=== PATIENT | male | born 1945 | race Caucasian/White ===

== ENCOUNTER 2016-07-10 08:18 | Emergency (ER) | payer MEDICARE, SELFPAY ==
[~2016-07-10 08:18] MED LIST: ALBUTEROL IN200 PUFF INH; ALDACTONE25 MG PO; ATROVENT2.5 ML NEB; BACITRACIN OIN EXT; BACTRIM DS TAB1 EACH PO; COLACE100 MG PO; CORDARONE200 MG PO; COUMADIN2.5 MG PO; COUMADIN4 MG PO; COUMADIN5 MG PO; DUONEB 2.5-0.5MG3 ML NEB; FLAGYL500 MG PO; HYDROCODON-ACE1 EAC2 PO; LANOXIN125 MCG PO; LASIX40 MG PO; LEVAQUIN750 MG PO; NICODERM 14MG PA1 EA TD; NICODERM 21MG PA1 EA TD; NICODERM 7MG PAT1 EA TD; PRADAXA150 MG PO; REMERON30 MG PO; SPIRIVA18 MCG INH; SYMBICORT 80-10.2 GM INH; VITAMIN D250000 UNIT PO; ZOCOR20 MG PO
[2016-07-10 08:44] LABS: ARTERIAL BLD GAS O2 SATURATION 97.5 % (94-98); ARTERIAL BLOOD GAS BASE EXCESS 2.3 mmol/L (-2.0-3.0); ARTERIAL BLOOD GAS HCO3 25.8 mmol/L (22-26); ARTERIAL BLOOD GAS PCO2 37.9 mmHg (35-48); ARTERIAL BLOOD GAS pH 7.45 (7.35-7.45)
[2016-07-10 08:52] LABS: BASO % 0.2 % (0.2-1.2); EOS # 0.1 10_X3_uL (0.0-0.5); EOS % 0.8 % (0.8-7.0); GRAN # 9.3 10_X3_uL (1.8-5.4); GRAN % 78.6 % (34.0-67.9); LYMPH # 1.2 10_X3_uL (1.3-3.6); LYMPH % 9.9 % (21.8-53.1); MEAN CORPUSCULAR HEMOGLOBIN 28.9 pg (27.0-33.0); MEAN CORPUSCULAR HGB CONC 32.5 g/dL (32.0-36.0); MEAN CORPUSCULAR VOLUME 88.9 fL (79-92); MEAN PLATELET VOLUME 10.1 fl (7.5-11.5); MONO # 1.3 10_X3_uL (0.3-0.8); MONO % 10.5 % (5.3-12.2); PLATELET COUNT 331 x10_3/uL (163-337); RED CELL DISTRIBUTION WIDTH 16.1 % (11.6-14.4); WHITE BLOOD COUNT 11.9 x10_3/uL (4.2-9.1)
[2016-07-10 09:15] LABS: ALKALINE PHOSPHATASE 125 U/L (50-136); ALT/SGPT 15 U/L (7.53-40.17); AST/SGOT 21 U/L (6.66-35.34); BILIRUBIN,TOTAL 0.56 mg/dL (0.0-1.0); BLOOD UREA NITROGEN 16 mg/dL (7-18); CARBON DIOXIDE 24 mmol/L (21-32); CREATINE KINASE 19 U/L (35-232); CREATININE 0.7 mg/dL (0.6-1.3); GLUCOSE,RANDOM 110 mg/dL (70-99); POTASSIUM 3.3 mmol/L (3.5-5.1); SODIUM 138 mmol/L (136-145); TOTAL PROTEIN 5.8 gm/dL (6.4-8.2)
== END 2016-07-10 12:38 | disposition home or self-care (01) ==
LOC: ER 08:18
PROVIDERS: Emergency Medicine
DX: R06.02 Shortness of breath (principal); I10 Essential (primary) hypertension; Z89.612 Acquired absence of left leg above knee; Z86.73 Personal history of transient ischemic attack (TIA), and cerebral infarction without residual deficits; Z95.1 Presence of aortocoronary bypass graft; Z99.81 Dependence on supplemental oxygen
CPT/HCPCS: 36415; 36600; 71010; 80053; 82550; 82553; 82803; 83880; 85025; 93005; 99284; 99285-25

== ENCOUNTER 2016-07-17 14:24 | Emergency (ER) | payer MEDICARE, SELFPAY ==
[2016-07-17 15:21] LABS: BASO % 0.1 % (0.2-1.2); EOS % 0.1 % (0.8-7.0); GRAN # 12.7 10_X3_uL (1.8-5.4); HEMATOCRIT 42.8 % (40-51); HEMOGLOBIN 14.1 g/dL (13.7-17.5); LYMPH # 0.8 10_X3_uL (1.3-3.6); LYMPH % 5.6 % (21.8-53.1); MEAN CORPUSCULAR HGB CONC 32.9 g/dL (32.0-36.0); MEAN CORPUSCULAR VOLUME 88.1 fL (79-92); MEAN PLATELET VOLUME 10.3 fl (7.5-11.5); MONO # 0.9 10_X3_uL (0.3-0.8); MONO % 6.2 % (5.3-12.2); PLATELET COUNT 371 x10_3/uL (163-337); RED BLOOD COUNT 4.86 x10_6/uL (4.6-6.1); RED CELL DISTRIBUTION WIDTH 16.2 % (11.6-14.4); WHITE BLOOD COUNT 14.4 x10_3/uL (4.2-9.1)
[2016-07-17 15:42] LABS: ALBUMIN 3.4 gm/dL (3.4-5.0); ALKALINE PHOSPHATASE 117 U/L (50-136); ALT/SGPT 16 U/L (7.53-40.17); AST/SGOT 25 U/L (6.66-35.34); BILIRUBIN,TOTAL 0.71 mg/dL (0.0-1.0); BLOOD UREA NITROGEN 15 mg/dL (7-18); CALCIUM 8.9 mg/dL (8.7-10.7); CARBON DIOXIDE 24 mmol/L (21-32); CREATININE 0.8 mg/dL (0.6-1.3); GLUCOSE,RANDOM 106 mg/dL (70-99); POTASSIUM 3.9 mmol/L (3.5-5.1); SODIUM 135 mmol/L (136-145); TOTAL PROTEIN 6.8 gm/dL (6.4-8.2)
== END 2016-07-17 19:07 | disposition home or self-care (01) ==
LOC: ER 14:24
PROVIDERS: Emergency Medicine
DX: A04.9 Bacterial intestinal infection, unspecified (principal); R11.2 Nausea with vomiting, unspecified; R10.9 Unspecified abdominal pain; I48.91 Unspecified atrial fibrillation; I10 Essential (primary) hypertension; J44.9 Chronic obstructive pulmonary disease, unspecified; Z86.73 Personal history of transient ischemic attack (TIA), and cerebral infarction without residual deficits; Z89.612 Acquired absence of left leg above knee; Z79.02 Long term (current) use of antithrombotics/antiplatelets; Z79.899 Other long term (current) drug therapy
CPT/HCPCS: 36415; 74150; 80053; 85025; 96372; 99284; 99284-25

== ENCOUNTER 2016-07-25 17:07 | Observation (INO) | payer MEDICARE, SELFPAY ==
[~2016-07-25] VITALS: Ht 185.4 cm; Wt 66.0 kg
[2016-07-25 18:45] LABS: PH,URINE 6.5 (5.0 - 9.0); URINE BILIRUBIN NEGATIVE (NEGATIVE); URINE BLOOD 3+ (NEGATIVE); URINE GLUCOSE (UA) NORMAL (NORMAL); URINE KETONE NEGATIVE (NEGATIVE); URINE LEUKOCYTE ESTERASE 2+ (NEGATIVE); URINE NITRATE NEGATIVE (NEGATIVE); URINE PROTEIN TRACE (NEGATIVE); UROBILINOGEN NORMAL mg/dL (<1.0)
[2016-07-25 19:22] LABS: URINE BACTERIA 1+ (NONE SEEN); URINE HYALINE CAST RARE /[HPF] (0-1/hpf); URINE SQUAMOUS EPITHELIAL CELL 0-10 /[HPF] (NONE SEEN); URINE WBC >15 /[HPF] (0-3)
[2016-07-25 20:22] LABS: ALBUMIN 2.9 gm/dL (3.4-5.0); ALKALINE PHOSPHATASE 90 U/L (50-136); ALT/SGPT 14 U/L (7.53-40.17); AST/SGOT 24 U/L (6.66-35.34); CALCIUM 8.3 mg/dL (8.7-10.7); CARBON DIOXIDE 24 mmol/L (21-32); CREATININE 0.9 mg/dL (0.6-1.3); GLUCOSE,RANDOM 81 mg/dL (70-99); POTASSIUM 3.9 mmol/L (3.5-5.1); SODIUM 135 mmol/L (136-145); TOTAL PROTEIN 6.1 gm/dL (6.4-8.2)
[2016-07-25 20:23] LABS: BLOOD UREA NITROGEN 22 mg/dL (7-18)
[2016-07-25 20:35] LABS: BASO % 0.3 % (0.2-1.2); EOS # 0.1 10_X3_uL (0.0-0.5); EOS % 0.8 % (0.8-7.0); GRAN # 10.7 10_X3_uL (1.8-5.4); GRAN % 76.7 % (34.0-67.9); HEMATOCRIT 44.9 % (40-51); HEMOGLOBIN 14.9 g/dL (13.7-17.5); LYMPH # 1.7 10_X3_uL (1.3-3.6); MEAN CORPUSCULAR HGB CONC 33.2 g/dL (32.0-36.0); MEAN CORPUSCULAR VOLUME 87.5 fL (79-92); MEAN PLATELET VOLUME 10.6 fl (7.5-11.5); MONO # 1.4 10_X3_uL (0.3-0.8); MONO % 10.2 % (5.3-12.2); PLATELET COUNT 227 x10_3/uL (163-337); RED BLOOD COUNT 5.13 x10_6/uL (4.6-6.1); RED CELL DISTRIBUTION WIDTH 16.1 % (11.6-14.4)
== END 2016-07-27 17:36 | disposition home or self-care (01) ==
LOC: ER 17:07 → MS 21:55
PROVIDERS: Internal Medicine; ADMIT Family Medicine
DX: N39.0 Urinary tract infection, site not specified (principal); B96.89 Other specified bacterial agents as the cause of diseases classified elsewhere; T83.511A Infection and inflammatory reaction due to indwelling urethral catheter, initial encounter; I25.10 Atherosclerotic heart disease of native coronary artery without angina pectoris; Z89.612 Acquired absence of left leg above knee; Z95.1 Presence of aortocoronary bypass graft; R53.1 Weakness; Z98.890 Other specified postprocedural states; R10.30 Lower abdominal pain, unspecified; J44.9 Chronic obstructive pulmonary disease, unspecified; I25.2 Old myocardial infarction; F17.210 Nicotine dependence, cigarettes, uncomplicated; Z79.899 Other long term (current) drug therapy
CPT/HCPCS: 36415; 71010; 80053; 81001; 83605; 85025; 87040; 87086; 87186; 96361; 96365; 96366; 96367; 99070; 99284; 99284-25; G0378

== ENCOUNTER 2016-08-10 16:46 | Observation (INO) | payer MEDICARE, SELFPAY | END 2016-08-12 12:43 | disposition other institution (70) | LOC: ER 16:46 → MS 20:24 | PROVIDERS: ADMIT Family Medicine | DX: I95.9 Hypotension, unspecified (principal); N39.0 Urinary tract infection, site not specified; I50.1 Left ventricular failure, unspecified; K52.9 Noninfective gastroenteritis and colitis, unspecified; E86.0 Dehydration; E87.70 Fluid overload, unspecified; I11.0 Hypertensive heart disease with heart failure; E11.9 Type 2 diabetes mellitus without complications; I25.10 Atherosclerotic heart disease of native coronary artery without angina pectoris; Z95.810 Presence of automatic (implantable) cardiac defibrillator; J44.9 Chronic obstructive pulmonary disease, unspecified; I73.9 Peripheral vascular disease, unspecified; I48.91 Unspecified atrial fibrillation; R19.5 Other fecal abnormalities; K64.4 Residual hemorrhoidal skin tags; Z89.612 Acquired absence of left leg above knee; F32.9 Major depressive disorder, single episode, unspecified; R21 Rash and other nonspecific skin eruption; Z99.81 Dependence on supplemental oxygen; R19.7 Diarrhea, unspecified; D72.829 Elevated white blood cell count, unspecified; E87.6 Hypokalemia; R77.0 Abnormality of albumin; Z79.899 Other long term (current) drug therapy | CPT/HCPCS: 36415; 71010; 74000; 80048; 80053; 80162; 81001; 83605; 83630; 83880; 85025; 87040; 87045; 87086; 87177; 87324; 93005; 94640; 96361; 96366; 96367; 96374; 96375; 96376; 99070; 99284; 99285-25; G0328-QW; G0378; J1170 ==

== ENCOUNTER 2016-08-10 16:46 | Inpatient (IN) | payer MEDICARE, SELFPAY ==
[~2016-08-10] VITALS: Ht 182.9 cm; Wt 60.1 kg
[2016-08-10 19:26] LABS: BASO % 0.1 % (0.2-1.2); EOS % 0.2 % (0.8-7.0); GRAN % 82.3 % (34.0-67.9); HEMATOCRIT 47.6 % (40-51); HEMOGLOBIN 15.8 g/dL (13.7-17.5); MEAN CORPUSCULAR HGB CONC 33.2 g/dL (32.0-36.0); MEAN CORPUSCULAR VOLUME 84.4 fL (79-92); MEAN PLATELET VOLUME 10.9 fl (7.5-11.5); MONO # 1.5 10_X3_uL (0.3-0.8); MONO % 10.4 % (5.3-12.2); PLATELET COUNT 284 x10_3/uL (163-337); RED BLOOD COUNT 5.64 x10_6/uL (4.6-6.1); RED CELL DISTRIBUTION WIDTH 16.5 % (11.6-14.4); WHITE BLOOD COUNT 14.6 x10_3/uL (4.2-9.1)
[2016-08-10 20:03] LABS: ALBUMIN 2.7 gm/dL (3.4-5.0); ALKALINE PHOSPHATASE 91 U/L (50-136); ALT/SGPT 7 U/L (7.53-40.17); AST/SGOT 16 U/L (6.66-35.34); BILIRUBIN,TOTAL 1.06 mg/dL (0.0-1.0); BLOOD UREA NITROGEN 27 mg/dL (7-18); CALCIUM 7.7 mg/dL (8.7-10.7); CARBON DIOXIDE 28 mmol/L (21-32); GLUCOSE,RANDOM 88 mg/dL (70-99); POTASSIUM 3.7 mmol/L (3.5-5.1); SODIUM 137 mmol/L (136-145); TOTAL PROTEIN 5.5 gm/dL (6.4-8.2)
[2016-08-11 00:45] LABS: URINE BILIRUBIN 1+ (NEGATIVE); URINE BLOOD 1+ (NEGATIVE); URINE GLUCOSE (UA) NORMAL (NORMAL); URINE KETONE TRACE (NEGATIVE); URINE LEUKOCYTE ESTERASE 2+ (NEGATIVE); URINE NITRATE NEGATIVE (NEGATIVE); URINE PROTEIN 1+ (NEGATIVE)
[2016-08-11 00:54] LABS: URINE BACTERIA 1+ (NONE SEEN); URINE WBC TNTC /[HPF] (0-3)
[2016-08-11 00:55] LABS: URINE YEAST 1+ (NONE SEEN)
[2016-08-11 09:36] LABS: BASO % 0.1 % (0.2-1.2); EOS % 0.3 % (0.8-7.0); GRAN # 12.2 10_X3_uL (1.8-5.4); GRAN % 79.4 % (34.0-67.9); HEMATOCRIT 43.4 % (40-51); HEMOGLOBIN 14.3 g/dL (13.7-17.5); LYMPH # 1.6 10_X3_uL (1.3-3.6); LYMPH % 10.7 % (21.8-53.1); MEAN CORPUSCULAR HEMOGLOBIN 28.6 pg (27.0-33.0); MEAN CORPUSCULAR HGB CONC 32.9 g/dL (32.0-36.0); MEAN CORPUSCULAR VOLUME 86.8 fL (79-92); MEAN PLATELET VOLUME 10.8 fl (7.5-11.5); MONO # 1.5 10_X3_uL (0.3-0.8); MONO % 9.5 % (5.3-12.2); PLATELET COUNT 400 x10_3/uL (163-337); RED CELL DISTRIBUTION WIDTH 16.2 % (11.6-14.4); WHITE BLOOD COUNT 15.3 x10_3/uL (4.2-9.1)
[2016-08-11 09:43] LABS: BLOOD UREA NITROGEN 22 mg/dL (7-18); CARBON DIOXIDE 25 mmol/L (21-32); GLUCOSE,RANDOM 86 mg/dL (70-99); POTASSIUM 3.2 mmol/L (3.5-5.1); SODIUM 135 mmol/L (136-145)
[2016-08-12 08:13] LABS: BASO % 0.1 % (0.2-1.2); EOS # 0.1 10_X3_uL (0.0-0.5); EOS % 0.8 % (0.8-7.0); GRAN # 10.4 10_X3_uL (1.8-5.4); GRAN % 75.9 % (34.0-67.9); HEMATOCRIT 39.3 % (40-51); HEMOGLOBIN 12.6 g/dL (13.7-17.5); LYMPH # 1.7 10_X3_uL (1.3-3.6); LYMPH % 12.4 % (21.8-53.1); MEAN CORPUSCULAR HEMOGLOBIN 28.3 pg (27.0-33.0); MEAN CORPUSCULAR HGB CONC 32.1 g/dL (32.0-36.0); MEAN CORPUSCULAR VOLUME 88.3 fL (79-92); MEAN PLATELET VOLUME 10.4 fl (7.5-11.5); MONO # 1.5 10_X3_uL (0.3-0.8); MONO % 10.8 % (5.3-12.2); PLATELET COUNT 344 x10_3/uL (163-337); RED BLOOD COUNT 4.45 x10_6/uL (4.6-6.1); RED CELL DISTRIBUTION WIDTH 16.3 % (11.6-14.4); WHITE BLOOD COUNT 13.7 x10_3/uL (4.2-9.1)
[2016-08-12 08:33] LABS: ALBUMIN 2.2 gm/dL (3.4-5.0); ALKALINE PHOSPHATASE 77 U/L (50-136); ALT/SGPT 6 U/L (7.53-40.17); AST/SGOT 16 U/L (6.66-35.34); BILIRUBIN,TOTAL 0.77 mg/dL (0.0-1.0); BLOOD UREA NITROGEN 16 mg/dL (7-18); CALCIUM 7.5 mg/dL (8.7-10.7); CARBON DIOXIDE 24 mmol/L (21-32); CREATININE 0.7 mg/dL (0.6-1.3); GLUCOSE,RANDOM 69 mg/dL (70-99); POTASSIUM 4.2 mmol/L (3.5-5.1); SODIUM 140 mmol/L (136-145); TOTAL PROTEIN 4.9 gm/dL (6.4-8.2)
[2016-08-13 07:22] LABS: BASO % 0.2 % (0.2-1.2); EOS # 0.1 10_X3_uL (0.0-0.5); EOS % 0.8 % (0.8-7.0); GRAN # 10.3 10_X3_uL (1.8-5.4); GRAN % 78.8 % (34.0-67.9); HEMATOCRIT 40.6 % (40-51); HEMOGLOBIN 12.9 g/dL (13.7-17.5); LYMPH # 1.4 10_X3_uL (1.3-3.6); LYMPH % 10.7 % (21.8-53.1); MEAN CORPUSCULAR HEMOGLOBIN 28.5 pg (27.0-33.0); MEAN CORPUSCULAR HGB CONC 31.8 g/dL (32.0-36.0); MEAN CORPUSCULAR VOLUME 89.6 fL (79-92); MEAN PLATELET VOLUME 10.7 fl (7.5-11.5); MONO # 1.2 10_X3_uL (0.3-0.8); MONO % 9.5 % (5.3-12.2); PLATELET COUNT 370 x10_3/uL (163-337); RED BLOOD COUNT 4.53 x10_6/uL (4.6-6.1); RED CELL DISTRIBUTION WIDTH 16.6 % (11.6-14.4)
[2016-08-13 07:39] LABS: BLOOD UREA NITROGEN 11 mg/dL (7-18); CALCIUM 7.7 mg/dL (8.7-10.7); CARBON DIOXIDE 24 mmol/L (21-32); CREATININE 0.6 mg/dL (0.6-1.3); GLUCOSE,RANDOM 61 mg/dL (70-99); POTASSIUM 3.9 mmol/L (3.5-5.1); SODIUM 139 mmol/L (136-145)
[2016-08-14 07:37] LABS: HEMATOCRIT 39.9 % (40-51); HEMOGLOBIN 12.7 g/dL (13.7-17.5); MEAN CORPUSCULAR HEMOGLOBIN 28.3 pg (27.0-33.0); MEAN CORPUSCULAR HGB CONC 31.8 g/dL (32.0-36.0); MEAN CORPUSCULAR VOLUME 88.9 fL (79-92); RED BLOOD COUNT 4.49 x10_6/uL (4.6-6.1); RED CELL DISTRIBUTION WIDTH 16.6 % (11.6-14.4); WHITE BLOOD COUNT 11.8 x10_3/uL (4.2-9.1)
[2016-08-14 07:49] LABS: BLOOD UREA NITROGEN 10 mg/dL (7-18); CALCIUM 7.4 mg/dL (8.7-10.7); CARBON DIOXIDE 22 mmol/L (21-32); CREATININE 0.6 mg/dL (0.6-1.3); POTASSIUM 3.4 mmol/L (3.5-5.1); SODIUM 138 mmol/L (136-145)
[2016-08-14 08:03] LABS: GLUCOSE,RANDOM 52 mg/dL (70-99)
[2016-08-15 05:41] LABS: URINE BILIRUBIN NEGATIVE (NEGATIVE); URINE BLOOD TRACE (NEGATIVE); URINE GLUCOSE (UA) NORMAL (NORMAL); URINE KETONE 2+ (NEGATIVE); URINE LEUKOCYTE ESTERASE 1+ (NEGATIVE); URINE NITRATE NEGATIVE (NEGATIVE); URINE PROTEIN 1+ (NEGATIVE); UROBILINOGEN NORMAL mg/dL (<1.0)
[2016-08-15 07:09] LABS: URINE BACTERIA TRACE (NONE SEEN); URINE RBC 0-5 /[HPF] (0-2); URINE SQUAMOUS EPITHELIAL CELL 0-10 /[HPF] (NONE SEEN)
[2016-08-15 07:10] LABS: URINE YEAST 1+ (NONE SEEN)
[2016-08-15 07:29] LABS: BASO % 0.1 % (0.2-1.2); EOS # 0.1 10_X3_uL (0.0-0.5); EOS % 0.8 % (0.8-7.0); GRAN # 9.2 10_X3_uL (1.8-5.4); GRAN % 76.7 % (34.0-67.9); HEMATOCRIT 38.2 % (40-51); HEMOGLOBIN 12.1 g/dL (13.7-17.5); LYMPH # 1.3 10_X3_uL (1.3-3.6); LYMPH % 11.1 % (21.8-53.1); MEAN CORPUSCULAR HEMOGLOBIN 27.9 pg (27.0-33.0); MEAN CORPUSCULAR HGB CONC 31.7 g/dL (32.0-36.0); MONO # 1.4 10_X3_uL (0.3-0.8); MONO % 11.3 % (5.3-12.2); PLATELET COUNT 412 x10_3/uL (163-337); RED BLOOD COUNT 4.34 x10_6/uL (4.6-6.1); RED CELL DISTRIBUTION WIDTH 16.7 % (11.6-14.4); WHITE BLOOD COUNT 11.9 x10_3/uL (4.2-9.1)
[2016-08-15 07:33] LABS: ALBUMIN 2.3 gm/dL (3.4-5.0); ALKALINE PHOSPHATASE 69 U/L (50-136); ALT/SGPT 5 U/L (7.53-40.17); AST/SGOT 11 U/L (6.66-35.34); BILIRUBIN,TOTAL 0.61 mg/dL (0.0-1.0); BLOOD UREA NITROGEN 8 mg/dL (7-18); CALCIUM 7.4 mg/dL (8.7-10.7); CARBON DIOXIDE 25 mmol/L (21-32); CREATININE 0.5 mg/dL (0.6-1.3); GLUCOSE,RANDOM 65 mg/dL (70-99); POTASSIUM 3.5 mmol/L (3.5-5.1); SODIUM 139 mmol/L (136-145); TOTAL PROTEIN 4.8 gm/dL (6.4-8.2)
[2016-08-17 07:16] LABS: HEMATOCRIT 40.1 % (40-51); HEMOGLOBIN 12.9 g/dL (13.7-17.5); MEAN CORPUSCULAR HGB CONC 32.2 g/dL (32.0-36.0); RED BLOOD COUNT 4.61 x10_6/uL (4.6-6.1); RED CELL DISTRIBUTION WIDTH 16.8 % (11.6-14.4); WHITE BLOOD COUNT 12.2 x10_3/uL (4.2-9.1)
[2016-08-17 07:28] LABS: ALBUMIN 2.5 gm/dL (3.4-5.0); ALKALINE PHOSPHATASE 74 U/L (50-136); ALT/SGPT 6 U/L (7.53-40.17); AST/SGOT 13 U/L (6.66-35.34); BILIRUBIN,TOTAL 0.77 mg/dL (0.0-1.0); BLOOD UREA NITROGEN 10 mg/dL (7-18); CALCIUM 7.6 mg/dL (8.7-10.7); CARBON DIOXIDE 21 mmol/L (21-32); CREATININE 0.6 mg/dL (0.6-1.3); GLUCOSE,RANDOM 80 mg/dL (70-99); POTASSIUM 3.3 mmol/L (3.5-5.1); SODIUM 137 mmol/L (136-145); TOTAL PROTEIN 5.4 gm/dL (6.4-8.2)
[2016-08-18 08:15] LABS: HEMATOCRIT 38.9 % (40-51); HEMOGLOBIN 12.8 g/dL (13.7-17.5); MEAN CORPUSCULAR HGB CONC 32.9 g/dL (32.0-36.0); MEAN CORPUSCULAR VOLUME 85.1 fL (79-92); MEAN PLATELET VOLUME 10.3 fl (7.5-11.5); RED BLOOD COUNT 4.57 x10_6/uL (4.6-6.1); RED CELL DISTRIBUTION WIDTH 16.8 % (11.6-14.4); WHITE BLOOD COUNT 9.6 x10_3/uL (4.2-9.1)
[2016-08-18 08:37] LABS: ALBUMIN 2.3 gm/dL (3.4-5.0); ALKALINE PHOSPHATASE 67 U/L (50-136); ALT/SGPT 6 U/L (7.53-40.17); AST/SGOT 12 U/L (6.66-35.34); BILIRUBIN,TOTAL 0.59 mg/dL (0.0-1.0); BLOOD UREA NITROGEN 10 mg/dL (7-18); CALCIUM 7.5 mg/dL (8.7-10.7); CARBON DIOXIDE 24 mmol/L (21-32); CREATININE 0.6 mg/dL (0.6-1.3); GLUCOSE,RANDOM 85 mg/dL (70-99); POTASSIUM 3.4 mmol/L (3.5-5.1); SODIUM 136 mmol/L (136-145); TOTAL PROTEIN 4.7 gm/dL (6.4-8.2)
[2016-08-19 08:14] LABS: HEMATOCRIT 40.9 % (40-51); HEMOGLOBIN 13.5 g/dL (13.7-17.5); MEAN CORPUSCULAR HEMOGLOBIN 28.1 pg (27.0-33.0); MEAN PLATELET VOLUME 10.6 fl (7.5-11.5); RED BLOOD COUNT 4.81 x10_6/uL (4.6-6.1); WHITE BLOOD COUNT 10.3 x10_3/uL (4.2-9.1)
[2016-08-19 08:33] LABS: BLOOD UREA NITROGEN 10 mg/dL (7-18); CALCIUM 7.2 mg/dL (8.7-10.7); CARBON DIOXIDE 28 mmol/L (21-32); CREATININE 0.7 mg/dL (0.6-1.3); GLUCOSE,RANDOM 82 mg/dL (70-99); POTASSIUM 3.4 mmol/L (3.5-5.1); SODIUM 134 mmol/L (136-145)
[2016-08-20 07:19] LABS: HEMOGLOBIN 12.6 g/dL (13.7-17.5); MEAN CORPUSCULAR HEMOGLOBIN 28.4 pg (27.0-33.0); MEAN CORPUSCULAR HGB CONC 33.2 g/dL (32.0-36.0); MEAN CORPUSCULAR VOLUME 85.8 fL (79-92); MEAN PLATELET VOLUME 10.6 fl (7.5-11.5); RED BLOOD COUNT 4.43 x10_6/uL (4.6-6.1); RED CELL DISTRIBUTION WIDTH 16.8 % (11.6-14.4); WHITE BLOOD COUNT 10.2 x10_3/uL (4.2-9.1)
[2016-08-20 07:28] LABS: BLOOD UREA NITROGEN 11 mg/dL (7-18); CALCIUM 7.4 mg/dL (8.7-10.7); CARBON DIOXIDE 28 mmol/L (21-32); CREATININE 0.8 mg/dL (0.6-1.3); GLUCOSE,RANDOM 83 mg/dL (70-99); POTASSIUM 4.2 mmol/L (3.5-5.1); SODIUM 138 mmol/L (136-145)
== END 2016-08-20 15:45 | disposition other institution (70) | DRG 315 ==
LOC: ER 16:46 → MS 20:24
PROVIDERS: Emergency Medicine; Family Medicine; ADMIT Family Medicine
DX: I95.9 Hypotension, unspecified (principal); I50.1 Left ventricular failure, unspecified; N39.0 Urinary tract infection, site not specified; K52.9 Noninfective gastroenteritis and colitis, unspecified; E86.0 Dehydration; E87.70 Fluid overload, unspecified; I11.0 Hypertensive heart disease with heart failure; E11.9 Type 2 diabetes mellitus without complications; I25.10 Atherosclerotic heart disease of native coronary artery without angina pectoris; Z95.810 Presence of automatic (implantable) cardiac defibrillator; J44.9 Chronic obstructive pulmonary disease, unspecified; I73.9 Peripheral vascular disease, unspecified; I48.91 Unspecified atrial fibrillation; R19.5 Other fecal abnormalities; K64.4 Residual hemorrhoidal skin tags; Z89.612 Acquired absence of left leg above knee; F32.9 Major depressive disorder, single episode, unspecified; R21 Rash and other nonspecific skin eruption; R19.7 Diarrhea, unspecified; D72.829 Elevated white blood cell count, unspecified; E87.6 Hypokalemia; R77.0 Abnormality of albumin; Z99.81 Dependence on supplemental oxygen; Z79.899 Other long term (current) drug therapy
CPT/HCPCS: 36415; 71010; 74000; 80048; 80053; 80162; 81001; 83605; 83630; 83880; 85025; 87040; 87045; 87086; 87177; 87324; 93005; 94640; 96361; 96374; 99070; 99284; 99285-25; G0328-QW; J1170

== ENCOUNTER 2016-09-12 19:41 | Emergency (ER) | payer MEDICARE ==
[2016-09-12 20:19] LABS: BASO % 0.1 % (0.2-1.2); EOS % 0.1 % (0.8-7.0); GRAN % 87.1 % (34.0-67.9); HEMATOCRIT 43.5 % (40-51); HEMOGLOBIN 14.7 g/dL (13.7-17.5); LYMPH # 1.9 10_X3_uL (1.3-3.6); LYMPH % 6.7 % (21.8-53.1); MEAN CORPUSCULAR HEMOGLOBIN 28.7 pg (27.0-33.0); MEAN CORPUSCULAR HGB CONC 33.8 g/dL (32.0-36.0); MEAN CORPUSCULAR VOLUME 84.8 fL (79-92); MONO # 1.7 10_X3_uL (0.3-0.8); PLATELET COUNT 447 x10_3/uL (163-337); RED BLOOD COUNT 5.13 x10_6/uL (4.6-6.1); RED CELL DISTRIBUTION WIDTH 16.1 % (11.6-14.4)
[2016-09-12 20:26] LABS: WHITE BLOOD COUNT 28.7 x10_3/uL (4.2-9.1)
[2016-09-12 20:40] LABS: ALBUMIN 3.7 gm/dL (3.4-5.0); ALKALINE PHOSPHATASE 74 U/L (50-136); ALT/SGPT 19 U/L (7.53-40.17); AST/SGOT 26 U/L (6.66-35.34); BILIRUBIN,TOTAL 0.75 mg/dL (0.0-1.0); CALCIUM 9.4 mg/dL (8.7-10.7); CARBON DIOXIDE 17 mmol/L (21-32); CREATINE KINASE 35 U/L (35-232); CREATININE 0.9 mg/dL (0.6-1.3); GLUCOSE,RANDOM 235 mg/dL (70-99); POTASSIUM 3.7 mmol/L (3.5-5.1); SODIUM 134 mmol/L (136-145); TOTAL PROTEIN 7.3 gm/dL (6.4-8.2)
[2016-09-12 20:41] LABS: BLOOD UREA NITROGEN 18 mg/dL (7-18)
[2016-09-12 20:49] LABS: INR 1.2 (0.9-1.1); PARTIAL THROMBOPLASTIN TIME 27.8 SECONDS (21.3-29.3); PROTHROMBIN TIME (PATIENT) 12.7 SECONDS (9.9-11.1)
[2016-09-12 21:12] LABS: DDIMER 2.77 mgFEU/L (0.19-0.50)
[2016-09-12 21:21] LABS: ARTERIAL BLD GAS O2 SATURATION 94.7 % (94-98); ARTERIAL BLOOD GAS BASE EXCESS -6.9 mmol/L (-2.0-3.0); ARTERIAL BLOOD GAS PCO2 26.1 mmHg (35-48)
== END 2016-09-12 22:03 | disposition short-term general hospital (02) ==
LOC: ER 19:41
PROVIDERS: Internal Medicine
DX: J18.9 Pneumonia, unspecified organism (principal); I48.91 Unspecified atrial fibrillation; D72.829 Elevated white blood cell count, unspecified
CPT/HCPCS: 36415; 36600; 71010; 80053; 82550; 82553; 82803; 83605; 83880; 85025; 85379; 85610; 85730; 87040; 93005; 96374; 96375; 99070; 99284; 99285-25; J7040